=== PATIENT | female | born 1985 | race Caucasian/White ===

== ENCOUNTER 2018-02-07 00:26 | Emergency (ER) | payer MEDICAID, OTHER ==
[2018-02-07] MEDS ORDERED: Ketorolac Tromethamine 30 MG/ML VIAL ONE (00:47)
[2018-02-07] MEDS ORDERED: Metoclopramide HCl 10 MG/2 ML VIAL ONE (00:47)
[2018-02-07] MEDS ORDERED: diphenhydrAMINE 50 MG/ML VIAL IVP SCH (01:00)
== END 2018-02-07 03:25 | disposition home or self-care (01) ==
LOC: ERS 00:26
DX: O90.89 Other complications of the puerperium, not elsewhere classified (principal); R51 Headache; H43.399 Other vitreous opacities, unspecified eye
CPT/HCPCS: 96365; 96375; J1200; J1885; J2765

== ENCOUNTER 2019-09-03 00:40 | Emergency (ER) | payer MEDICAID, OTHER | END 2019-09-03 02:40 | disposition home or self-care (01) | LOC: ERS 00:40 | DX: S16.1XXA Strain of muscle, fascia and tendon at neck level, initial encounter (principal); M62.838 Other muscle spasm; X50.1XXA Overexertion from prolonged static or awkward postures, initial encounter | CPT/HCPCS: 99283 ==

== ENCOUNTER 2020-06-28 15:05 | Outpatient (CLI) | payer OTHER | END 2020-06-28 15:06 | disposition home or self-care (01) | LOC: BICCT 15:05 | PROVIDERS: ATTEND Physician Assistant | DX: R10.31 Right lower quadrant pain (principal); R10.9 Unspecified abdominal pain; I87.8 Other specified disorders of veins | CPT/HCPCS: 74176 ==

== ENCOUNTER 2020-10-07 00:45 | Emergency (ER) | payer OTHER | END 2020-10-07 02:55 | disposition home or self-care (01) | LOC: ERS 00:45 | DX: S09.90XA Unspecified injury of head, initial encounter (principal); W22.8XXA Striking against or struck by other objects, initial encounter | CPT/HCPCS: 99283 ==

== ENCOUNTER 2020-10-16 02:08 | Emergency (ER) | payer OTHER | END 2020-10-16 03:57 | disposition home or self-care (01) | LOC: ERS 02:08 | DX: R20.2 Paresthesia of skin (principal); R29.700 NIHSS score 0 | CPT/HCPCS: 99283 ==

== ENCOUNTER 2024-06-18 11:01 | Emergency (ER) | payer OTHER, SELFPAY ==
[2024-06-18 13:23] LABS: #Basophils 0.03 10x3/uL (0.0-0.2); #Eosinophils Less than 0.03 10x3/uL (0.0-0.7); %Basophils 0.6 % (0.0-1.0); %Eosinophils 0.2 % (0.0-10.0); %Monocytes 5.5 % (0.0-10.0); %Neutrophils 76.5 % (42.0-75.0); Hematocrit 40.6 % (36.0-47.0); Hemoglobin 13.6 g/dL (12.0-16.0); Mean Corpuscular HGB CONC 33.5 g/dL (32.0-36.0); Mean Corpuscular Hemoglobin 30.4 pg (27.0-31.0); Mean Corpuscular Volume 90.6 fL (78.0-98.0); Mean Platelet Volume 10.6 fL (7.4-10.4); Platelet Count 149 10x3/uL (130-400); RBC Distribution Width 13.2 % (11.5-14.5); Red Blood Cell (RBC) Count 4.48 mill/uL (4.20-5.40)
[2024-06-18 13:42] LABS: ALT (SGPT) 26 U/L (Less than 34); AST (SGOT) 31 U/L (11-34); Albumin 4.7 g/dL (3.1-4.5); Alkaline Phosphatase 98 U/L (40-110); Anion Gap 14 mmol/L (10-20); BUN (Urea Nitrogen) 12 mg/dL (7.0-18.7); Bilirubin, Total 0.8 mg/dL (0.3-1.2); Calc. Creatinine Clearance 0 mL/min (70-130); Calcium 9.6 mg/dL (7.8-10.44); Carbon Dioxide 22 mmol/L (22-29); Chloride 107 mmol/L (98-107); Estimated GFR 110; Globulin 3.6 g/dL (2.4-3.5); Glucose 94 mg/dL (70-105); Magnesium 1.9 mg/dL (1.6-2.6); Protein, Total 8.3 g/dL (6.0-8.3); Sodium 139 mmol/L (136-145)
[2024-06-18 13:45] LABS: Acetaminophen Less than 10 mcg/mL (Less than 10); Alcohol Less than 10.0 mg/dL (Less than 10); Salicylate Less than 8.0 mg/dL (Less than 8.0)
[2024-06-18 13:46] LABS: Bacteria/HPF None Seen HPF (None Seen); Bilirubin Negative (Negative); Blood, Urine 2+ (Negative); CAUTI Indications for Culture Alt mental st,lethar; Clarity Clear (Clear); Glucose, Urine (Dipstick) Normal (Negative); Ketone, Urine 20 mg/dL (Negative); Leukocyte Negative Leu/uL (Negative); Nitrite Negative (Negative); Protein, Urine (Dipstick) Negative (Neg-Trace); RBC/HPF 0-3 HPF (0-3); Specific Gravity, Urine 1.027 (1.002-1.036); Squamous Epithelial 0-3 HPF (0-3); Urobilinogen Normal mg/dL (Less than 2); WBC/HPF 0-3 HPF (0-3)
[2024-06-18 13:48] LABS: Troponin I Less than 0.010 ng/mL (< 0.028)
[2024-06-18 13:50] LABS: Urine Culture Reflex No No
[2024-06-18 13:52] LABS: Amphetamine Not Detected (NotDetected); Barbiturates Screen Not Detected (NotDetected); Benzodiazepine Screen Not Detected (NotDetected); Cocaine Metabolite Screen Not Detected (NotDetected); Methadone Not Detected (NotDetected); Methamphetamine Not Detected (NotDetected); Opiate Screen Not Detected (NotDetected); Oxycodone Screen Not Detected (NotDetected); Phencyclidine (PCP) Not Detected (NotDetected); THC/Cannabinoid Screen Not Detected (NotDetected); Tricyclic Screen Not Detected (NotDetected)
== END 2024-06-18 15:12 | disposition home or self-care (01) ==
LOC: ERS 11:01
DX: R55 Syncope and collapse (principal)
CPT/HCPCS: 70450; 80053; 80164; 80306; 80307; 81001; 83735; 84146; 84443; 84484; 85025; 93005